=== PATIENT | female | born 1995 | race Caucasian/White ===

== ENCOUNTER 2016-07-25 20:43 | Emergency (ER) | payer BC ==
[2016-07-25 21:21] LABS: BASO % 0.2 % (0.1-1.2); EOS % 0.7 % (0.7-5.8); GRAN # 2.7 10_X3_uL (1.6-6.1); HEMATOCRIT 37.7 % (34-45); HEMOGLOBIN 12.4 g/dL (11.2-15.7); LYMPH # 2.8 10_X3_uL (1.2-3.7); LYMPH % 46.8 % (19.3-51.7); MEAN CORPUSCULAR HEMOGLOBIN 29.5 pg (27.0-33.0); MEAN CORPUSCULAR HGB CONC 32.9 g/dL (32.0-36.0); MEAN CORPUSCULAR VOLUME 89.5 fL (79-95); MEAN PLATELET VOLUME 11.2 fl (7.5-11.5); MONO # 0.4 10_X3_uL (0.2-0.9); MONO % 7.3 % (4.7-12.5); PLATELET COUNT 206 x10_3/uL (182-369); RED BLOOD COUNT 4.21 x10_6/uL (3.9-5.2); RED CELL DISTRIBUTION WIDTH 13.9 % (11.7-14.4)
[2016-07-25 21:34] LABS: ALBUMIN 4.2 gm/dL (3.4-5.0); ALKALINE PHOSPHATASE 42 U/L (50-136); ALT/SGPT 12 U/L (3.5-33.9); AMYLASE 18 U/L (15.62-74.58); AST/SGOT 13 U/L (7.04-26.96); BILIRUBIN,TOTAL 0.49 mg/dL (0.0-1.0); BLOOD UREA NITROGEN 7 mg/dL (7-18); CALCIUM 9.1 mg/dL (8.7-10.7); CARBON DIOXIDE 22 mmol/L (21-32); CREATININE 0.7 mg/dL (0.6-1.3); GLUCOSE,RANDOM 82 mg/dL (70-99); LIPASE 13 U/L (6.75-60.75); POTASSIUM 4.2 mmol/L (3.5-5.1); SODIUM 140 mmol/L (136-145); TOTAL PROTEIN 6.8 gm/dL (6.4-8.2)
== END 2016-07-25 21:48 | disposition home or self-care (01) ==
LOC: ER 20:43
PROVIDERS: General Practice
DX: R10.11 Right upper quadrant pain (principal); K80.50 Calculus of bile duct without cholangitis or cholecystitis without obstruction; R11.0 Nausea; Z88.1 Allergy status to other antibiotic agents; Z79.3 Long term (current) use of hormonal contraceptives
CPT/HCPCS: 36415; 80053; 82150; 83690; 85025; 99283